=== PATIENT | female | born 1965 | race Caucasian/White ===

== ENCOUNTER 2017-03-14 21:49 | Inpatient (IN) | payer BC ==
[~2017-03-14] VITALS: Ht 157.5 cm; Wt 95.0 kg
[~2017-03-14 21:49] MED LIST: ASPIR 8181 M1 PO; CYANOCOBALAM1000 MCG PO; FEOSOL325 MG PO; FLAGYL500 MG PO; ICY HOT CREAM35.4 G1 TP; NEOMYCIN SULFA500 MG PO; TYLENOL EXTRA500 MG PO; VITAMIN D32000 UNI1 PO
[2017-03-15 06:48] VITALS: BP 133/66
[2017-03-15 16:37] VITALS: BP 165/78
[2017-03-15 20:02] VITALS: BP 140/66
[2017-03-16] VITALS (8 sets, daily range): BP systolic 108–154; BP diastolic 53–74
[2017-03-16 06:27] LABS: HEMATOCRIT 36.6 % (36.0-46.0); MCH 21.3 PG (29.0-34.0); MCHC 29.2 G/DL (30.0-36.0); MCV 72.8 FL (83-99); MEAN PLAT.VOLUME 9.5 uM^3 (9.5-12.4); PLATELET COUNT 400 K/uL (156-360); RED BLOOD COUNT 5.03 M/uL (3.80-5.20); WHITE BLOOD COUNT 12.7 K/uL (4.1-10.2)
[2017-03-16 06:36] LABS: ALKALINE PHOSPHATASE 38 IU/L (3-129); ANION GAP 9 MEQ/L (2-14); CHLORIDE 106 MEQ/L (99-109); GFR ESTIMATE (CALCULATED) > 59 mL/min/; GLUCOSE 112 mg/dL (70-99); MAGNESIUM 1.8 mg/dl (1.3-2.7); POTASSIUM 4.4 MEQ/L (3.7-5.4); SAMPLE HEMOLYSIS CHECK 0; SAMPLE ICTERIC CHECK 0; SAMPLE LIPEMIA CHECK 0; SODIUM 142 MEQ/L (136-147); TOTAL BILIRUBIN 0.7 MG/DL (0.0-1.0); UREA NITROGEN (BUN) 11 mg/dL (9-23)
[2017-03-16 07:24] LABS: ANISOCYTOSIS 3+; EOSINOPHIL (%) 0.1 % (0-5); IMMATURE GRANULOCYTE (%) 0.5 % (0.0-0.7); IMMATURE GRANULOCYTE COUNT 0.1 K/uL; INSTRUMENT ABS NEUTROPHIL CT 9.3 K/uL; MICROCYTOSIS 3+; MONOCYTE (%) 10.5 % (3-12); MONOCYTE COUNT 1.3 K/uL (0-0.8); NEUTROPHIL (%) 73.1 % (45-76); NEUTROPHIL COUNT 9.3 K/uL (1.8-6.4); OVALOCYTES 1+; POIKILOCYTOSIS 1+
[2017-03-16 12:48] LABS: INTERNAL CONTROL VALID? YES
[2017-03-17 03:15] VITALS: BP 125/58
[2017-03-17 06:13] LABS: HEMATOCRIT 33.8 % (36.0-46.0); MCH 21.6 PG (29.0-34.0); MCV 74.6 FL (83-99); MEAN PLAT.VOLUME 9.5 uM^3 (9.5-12.4); PLATELET COUNT 321 K/uL (156-360); RED BLOOD COUNT 4.53 M/uL (3.80-5.20); WHITE BLOOD COUNT 10.5 K/uL (4.1-10.2)
[2017-03-17 06:25] LABS: ANION GAP 6 MEQ/L (2-14); CHLORIDE 102 MEQ/L (99-109); GFR ESTIMATE (CALCULATED) > 59 mL/min/; GLUCOSE 117 mg/dL (70-99); POTASSIUM 4.3 MEQ/L (3.7-5.4); SAMPLE HEMOLYSIS CHECK 0; SAMPLE ICTERIC CHECK 0; SAMPLE LIPEMIA CHECK 0; SODIUM 140 MEQ/L (136-147); UREA NITROGEN (BUN) 11 mg/dL (9-23)
[2017-03-17 06:33] VITALS: BP 142/67
[2017-03-17 11:17] VITALS: BP 124/61
[2017-03-17 15:30] VITALS: BP 114/74
[2017-03-17 22:39] VITALS: BP 133/72
[2017-03-18 04:47] VITALS: BP 128/68
[2017-03-18 06:14] LABS: HEMATOCRIT 33.6 % (36.0-46.0); MCH 21.4 PG (29.0-34.0); MCHC 29.2 G/DL (30.0-36.0); MCV 73.4 FL (83-99); MEAN PLAT.VOLUME 9.3 uM^3 (9.5-12.4); PLATELET COUNT 247 K/uL (156-360); RED BLOOD COUNT 4.58 M/uL (3.80-5.20); WHITE BLOOD COUNT 7.9 K/uL (4.1-10.2)
[2017-03-18 06:24] LABS: ANION GAP 7 MEQ/L (2-14); CHLORIDE 103 MEQ/L (99-109); GFR ESTIMATE (CALCULATED) > 59 mL/min/; GLUCOSE 128 mg/dL (70-99); MAGNESIUM 1.7 mg/dl (1.3-2.7); POTASSIUM 3.7 MEQ/L (3.7-5.4); SAMPLE HEMOLYSIS CHECK 0; SAMPLE ICTERIC CHECK 0; SAMPLE LIPEMIA CHECK 0; SODIUM 142 MEQ/L (136-147); UREA NITROGEN (BUN) 8 mg/dL (9-23)
[2017-03-18 07:40] VITALS: BP 135/64
[2017-03-18] MEDS ORDERED: COLACE100 MG PO (08:47)
[2017-03-18] MEDS ORDERED: OXYCODONE-APAP1 EACH PO (08:47)
== END 2017-03-18 10:07 | disposition home or self-care (01) | DRG 331 ==
LOC: 2SOUTH → ENRESERV 21:49 → 2SOUTH 03-15 05:46 → ENRESERV 03-15 12:58 → 2SOUTH 03-15 13:29 → 5EAST 03-15 16:20
PROVIDERS: Physician Assistant Surgical; Surgery
DX: C18.7 Malignant neoplasm of sigmoid colon (principal); E78.5 Hyperlipidemia, unspecified; I10 Essential (primary) hypertension; E66.9 Obesity, unspecified; M54.12 Radiculopathy, cervical region; K59.00 Constipation, unspecified; F17.200 Nicotine dependence, unspecified, uncomplicated; Z80.1 Family history of malignant neoplasm of trachea, bronchus and lung; Z82.0 Family history of epilepsy and other diseases of the nervous system; Z80.0 Family history of malignant neoplasm of digestive organs; Z68.39 Body mass index [BMI] 39.0-39.9, adult
CPT/HCPCS: 80048; 80053; 83735; 84100; 84703; 85025; 85027; 88307; 94799; J0330; J1100; J1170; J1650; J2250; J2300; J2405; J2710; J3010; J7120; Q0175; S0030; S0074